=== PATIENT | male | born 1940 | race Caucasian/White ===

== ENCOUNTER 2018-08-11 06:44 | Day surgery (SDC) | payer MEDICARE, BC ==
[2018-08-11] MEDS ORDERED: ACETAZOLAMIDE 250 MG PO ONE (06:45)
[2018-08-11] MEDS: TETRACAINE HCL 0.5 % 1 DROP SOL ONE ×3 (07:07→08:29)
[2018-08-11] MEDS: PHENYLEPHRINE HCL 10% OPHTHAL SOL ONE ×2 (07:08→07:20)
[2018-08-11] MEDS: CYCLOPENTOLATE 1% SOL ONE ×2 (07:08→07:20)
[2018-08-11] MEDS: KETOROLAC 0.5% OPTH 60 DROP SOL ONE ×2 (07:08→07:20)
[2018-08-11] MEDS ORDERED: FENTANYL 100MCG/2ML SOL ONE (08:10)
[2018-08-11] MEDS ORDERED: MIDAZOLAM 2 MG/2 ML SOL ONE (08:10)
[2018-08-11] MEDS ORDERED: POVIDONE IODINE 5% SOL ONE (08:23)
[2018-08-11] MEDS ORDERED: LIDOCAINE HCL 1% MPF 30 SOL ONE (08:23)
[2018-08-11] MEDS ORDERED: BSS 500 ML 500 ML IR ONE (08:23)
[2018-08-11] MEDS: IMPRIMIS ONE ×2 (08:46→08:50)
[2018-08-11 09:05] VITALS: RESP 18; TEMP 97.4
[2018-08-11 09:26] VITALS: BP 167/88; PULSE 71; O2SAT 97
== END 2018-08-11 09:23 | disposition home or self-care (01) | DRG 125 ==
LOC: SURG 06:44
PROVIDERS: ATTEND Ophthalmology
DX: H25.89 Other age-related cataract (principal)
CPT/HCPCS: J2250; J3010; A9270-GY; J2001